=== PATIENT | female | born 1955 | race Two or more races ===

== ENCOUNTER → 2018-11-12 | Outpatient (CLI) | payer OTHER ==
[2018-11-12 10:37] LABS: ALBUMIN 3.6 g/dL (3.4-5.0); ANION GAP 9 mmol/L (8-16); CALCIUM, TOTAL 9.2 mg/dL (8.8-10.5); CARBON DIOXIDE 28 mmol/L (22-29); CHLORIDE 100 mmol/L (98-107); CREATININE 0.66 mg/dL (0.60-1.30); GLOMERULAR FILTR. RATE CALC > 60 mL/min (>60); GLUCOSE,RANDOM 145 mg/dL (70-110); PHOSPHORUS 4.4 mg/dL (2.5-4.9); POTASSIUM 4.4 mmol/L (3.5-5.1); SODIUM SERUM 137 mmol/L (136-145); UREA NITROGEN, BLOOD 12 mg/dL (7-18)
[2018-11-12 11:34] LABS: CREATININE,URINE 29.4 mg/dL (30.0-125.0)
[2018-11-12 11:54] LABS: COLLECTION TIME,URINE 24 HR; TOTAL VOLUME,CREAT CLR 2450 mL; TPROTEIN URINE, 24HRS COLL 147 mg/24Hr (0-165)
[2018-11-12 11:55] LABS: TPROTEIN TIMED,URINE < 6 mg/dL
[2018-11-12 11:56] LABS: CREAT CLEARANCE/1.73sq.meter 76 ml/min (75-115); CREATININE,SERUM FOR CRCL 0.66 mg/dL (0.60-1.30)
== END | disposition home or self-care (01) ==
LOC: LABPV 09:32
PROVIDERS: ATTEND Internal Medicine Nephrology
DX: E55.9 Vitamin D deficiency, unspecified (principal); E11.22 Type 2 diabetes mellitus with diabetic chronic kidney disease; E78.49 Other hyperlipidemia; K76.0 Fatty (change of) liver, not elsewhere classified
CPT/HCPCS: 81050; 82043; 82306; 82570; 82575; 83970; 84156